=== PATIENT | female | born 1995 | race Native Hawaiian/Other Pacific Islander ===

== ENCOUNTER 2021-11-21 20:41 | Emergency (ER) | payer BC ==
[~2021-11-21] VITALS: Ht 180.3 cm; Wt 72.6 kg
[2021-11-21 22:23] VITALS: BP 121/69; TEMP 98.9
== END 2021-11-21 22:30 | disposition home or self-care (01) ==
LOC: ED 20:41
DX: K02.9 Dental caries, unspecified (principal)
CPT/HCPCS: 96372; 99283; J0696; J1885